=== PATIENT | male | born 1975 | race Caucasian/White ===

== ENCOUNTER 2016-09-09 13:58 | Emergency (ER) | payer MEDICAID ==
[~2016-09-09] VITALS: Ht 185.4 cm; Wt 80.0 kg
[2016-09-09 14:00] VITALS: BP 129/83; PULSE 102; RESP 16; TEMP 98.4; O2SAT 98
--- NOTE | 2016-09-09 14:06 | PD ---
Physical Exam Time Seen by Provider: 14:06 Narrative 40 y/o male with a pruritic papular rash for 2 weeks. Vital signs reviewed. Seen at triage desk. Awaiting bed placement. Data Data Last Documented VS Vital Signs Date Time Temp Pulse Resp B/P Pulse Ox O2 Delivery O2 Flow Rate FiO2 09/09/16 14:00 98.4 102 16 129/83 98 MDM Medical Record Reviewed: Yes Supervised Visit with JANE: Jameel Bedolla Sep 09, 2016 14:06
[2016-09-09] MEDS ORDERED: PERM5CRE11 TOPICAL (15:42)
[2016-09-09] MEDS ORDERED: CEPH-460 PO (15:42)
--- NOTE | 2016-09-09 15:44 | PD ---
HPI Chief Complaint: Skin Problem Time Seen by Provider: 15:37 Travel History International Travel<30 days: No Contact w/Intl Traveler<30days: No Traveled to known affect area: No History of Present Illness HPI 40-year-old male with a pruritic rash on his upper extremities and trunk 2 weeks. Patient reports the rash is unrelieved by [id number] Benadryl. He reports he had a similar rash several years ago but cannot recall what it was. He denies fever or chills, wheezing, shortness of breath. Patient is an insulin-dependent diabetic. He reports his sugars have been within normal limits. [facility] Past Medical History Narrative Medical Type I diabetic. Diabetes: Yes Patient Takes Glucophage: No Past Surgical History Surgical History: No Previous Surgery Social History Alcohol Use: No Tobacco Use: Yes (1/2 pack per day) Substance Use: Yes (marijuana occ) Allergies-Medications (Allergen,Severity, Reaction): Coded Allergies: No Known Allergies (Unverified , 09/09/16) Reported Meds & Prescriptions Reported Meds & Active Scripts Active Keflex (Cephalexin) 500 Mg Cap 500 Mg PO Q6H Elimite Topical (Permethrin) 5% Cream 1 Applic TOPICAL ONCE Review of Systems Except as stated in HPI: all other systems reviewed are Neg General / Constitutional: No: Fever Eyes: No: Visual changes HENT: No: Headaches Cardiovascular: No: Chest Pain or Discomfort Respiratory: No: Shortness of Breath Gastrointestinal: No: Abdominal Pain Genitourinary: No: Dysuria Musculoskeletal: No: Pain Skin: Positive Rash Physical Exam Narrative GENERAL: Alert, well-appearing male no acute distress. SKIN: Focused skin assessment warm/dry. Patient has an erythematous rash in a linear fashion on the dorsal aspect and webs of his hands extending up to the elbows. Several areas are opened and excoriated from scratching. There is no lymphangitis, induration or surrounding cellulitis. HEAD: Atraumatic. Normocephalic. EYES: Pupils equal and round. No scleral icterus. No injection or drainage. ENT: No nasal bleeding or discharge. Mucous membranes pink and moist. No oropharyngeal swelling. NECK: Trachea midline. No JVD. CARDIOVASCULAR: Regular rate and rhythm. No murmur appreciated. RESPIRATORY: No accessory muscle use. Clear to auscultation. Breath sounds equal bilaterally. MUSCULOSKELETAL: No obvious deformities. No clubbing. No cyanosis. No edema. NEUROLOGICAL: Awake and alert. No obvious cranial nerve deficits. Motor grossly within normal limits. Normal speech. PSYCHIATRIC: Appropriate mood and affect; insight and judgment normal. Data Data Last Documented VS Vital Signs Date Time Temp Pulse Resp B/P Pulse Ox O2 Delivery O2 Flow Rate FiO2 09/09/16 14:00 98.4 102 16 129/83 98 MDM Medical Decision Making Medical Screen Exam Complete: Yes Emergency Medical Condition: Yes Differential Diagnosis Scabies, contact dermatitis, localized wound infection Narrative Course 40-year-old male with a 2 week history of a pruritic rash on his upper extremities. The rash is consistent with scabies. He has several areas that are open and excoriated from scratching. These areas have small amount of erythema and yellow crusting. Patient will be put on Keflex to cover for superficial wound infections. Patient will also be put on Elimite for scabies. Return precautions discussed. Diagnosis Primary Impression: Scabies Additional Impression: Wound infection Referrals: Primary Care Physician Additional Instructions: Is a medication as prescribed. Wash all clothing and bedding in hot water. Take [id number] Benadryl as needed for itching. Scripts Cephalexin (Keflex)500 Mg [id number] Mg PO Q6H #28 CAP Prov:Hetal Raygoza 09/09/16 Permethrin Topical (Elimite Topical)5% Cream1 Applic TOPICAL ONCE #1 TUBE Ref 0 Prov:Hetal Raygoza 09/09/16 Disposition: 01 DISCHARGE HOME Condition: Stable Hetal Raygoza Sep 09, 2016 15:43
== END 2016-09-09 16:20 | disposition home or self-care (01) ==
LOC: NEPD 13:58
DX: B86 Scabies (principal)
CPT/HCPCS: 99284